=== PATIENT | female | born 1945 | race Caucasian/White ===

== ENCOUNTER 2017-06-07 11:16 | Inpatient (IN) ==
[2017-06-07] MEDS ORDERED: SODIUM CHLORIDE 0.9% 2,000 ML IV STA (12:21)
[2017-06-07] MEDS ORDERED: PANTOPRAZOLE INJ 80 MG in SODIUM CHLORIDE 0.9% 100 ML IV STA (12:21)
[2017-06-07] MEDS ORDERED: PANTOPRAZOLE 40 MG VIAL IV ONE (12:53)
[2017-06-07 12:58] LABS: Basophils % 0.3 % (0.0-0.8); Eosinophils # 0.4 10*3/uL (0.0-0.87); Eosinophils % 4.7 % (0.00-10.9); Hematocrit 35.2 VOL% (35.7-47.0); Hemoglobin 11.5 GM/DL (12.0-16.0); Immature Granulocytes % 0.4 %; Immature Granulocytes Absolute 0.03 #; Lymphocytes # 0.5 10*3/uL (1.4-4.0); Lymphocytes % 6.9 % (21.3-54.2); Mean Corpuscular HGB Conc 32.7 GM/DL (32-36); Mean Corpuscular Hemoglobin 28 PG (27-34); Mean Corpuscular Volume 86.9 FL (87-102); Mean Platelet Volume 9.2 FL (9.6-12.0); Monocytes # 0.3 10*3/uL (0.11-0.8); Monocytes % 3.3 % (1.7-12.7); Neutrophils # 6.5 10*3/uL (1.4-7.4); Neutrophils % 84.4 % (38.7-73.9); Platelet Count 213 T/CUMM (130-400); Red Blood Count 4.05 MC/CUMM (3.8-5.5); Red Cell Distribution Width 15.2 % (9.3-17.3); White Blood Count 7.7 T/CUMM (4-12)
[2017-06-07 13:07] LABS: INR 1.2; PT Patient Result 12.8 SECS; Partial Thromboplastin Time 32.2 SECS (0-40)
[2017-06-07 13:42] LABS: Alanine Aminotransferase 14 U/L (13-56); Albumin 3.5 G/DL (3.4-5.0); Alkaline Phosphatase 95 U/L (45-117); Aspartate Amino Transferase 15 U/L (0-37); Blood Urea Nitrogen 9 MG/DL (7-18); Calcium 8.8 MG/DL (8.5-10.1); Total Protein 7.2 G/DL (6.4-8.3)
[2017-06-07 13:43] LABS: Glucose 105 MG/DL (74-106); Osmolality,Calculated 277.4 MOS/KG (273-304); Potassium 3.6 MMOL/L (3.5-5.1); Sodium 140 MMOL/L (136-145); Troponin I Only < 0.015 NG/ML (0.00-0.045)
[2017-06-07] MEDS: PANTOPRAZOLE INJ 200 MG in SODIUM CHLORIDE 0.9% 250 ML IV SCH (14:10)
[2017-06-07] MEDS ORDERED: ONDANSETRON 4 MG/2 ML VIAL IV STA (15:20)
[2017-06-07] MEDS ORDERED: ONDANSETRON 4 MG/2 ML VIAL ONE (15:28)
[2017-06-07] MEDS ORDERED: ONDANSETRON 4 MG/2 ML VIAL IV PRN (16:07)
[2017-06-07] MEDS ORDERED: MORPHINE 2 MG/1 ML SYRINGE IV PRN (16:07)
[2017-06-07 16:50] LABS: Free T4 (Free Thyroxine) 1.13 NG/DL (0.76-1.46); Thyroid Stimulating Hormone 5.53 uIU/ml (0.358-3.74)
[2017-06-07] MEDS: SODIUM CHLORIDE 0.9% 1,000 ML IV SCH (18:05)
[2017-06-07 21:09] LABS: Hematocrit 31.6 VOL% (35.7-47.0); Hemoglobin 10.2 GM/DL (12.0-16.0)
[2017-06-08 01:29] LABS: Hematocrit 27.4 VOL% (35.7-47.0); Hemoglobin 8.9 GM/DL (12.0-16.0)
[2017-06-08] MEDS: SODIUM CHLORIDE 0.9% 1,000 ML IV SCH ×4 (02:54→22:40)
[2017-06-08] MEDS: LEVOTHYROXINE 25 MCG TABLET PO SCH (06:26)
[2017-06-08 06:47] LABS: Hematocrit 29.1 VOL% (35.7-47.0); Hemoglobin 9.5 GM/DL (12.0-16.0)
[2017-06-08 12:47] LABS: Hemoglobin 9.7 GM/DL (12.0-16.0)
[2017-06-08] MEDS: PANTOPRAZOLE INJ 200 MG in SODIUM CHLORIDE 0.9% 250 ML IV SCH (17:18)
[2017-06-08] MEDS: MELATONIN 3 MG TABLET PO PRN (22:58)
[2017-06-09 02:47] LABS: Basophils % 0.4 % (0.0-0.8); Eosinophils # 0.5 10*3/uL (0.0-0.87); Eosinophils % 10.7 % (0.00-10.9); Hematocrit 28.2 VOL% (35.7-47.0); Hemoglobin 9.2 GM/DL (12.0-16.0); Immature Granulocytes % 0.4 %; Immature Granulocytes Absolute 0.02 #; Lymphocytes # 1.1 10*3/uL (1.4-4.0); Lymphocytes % 22.9 % (21.3-54.2); Mean Corpuscular HGB Conc 32.6 GM/DL (32-36); Mean Corpuscular Hemoglobin 28 PG (27-34); Mean Corpuscular Volume 86.5 FL (87-102); Mean Platelet Volume 9.7 FL (9.6-12.0); Monocytes # 0.4 10*3/uL (0.11-0.8); Monocytes % 9.2 % (1.7-12.7); Neutrophils # 2.7 10*3/uL (1.4-7.4); Neutrophils % 56.4 % (38.7-73.9); Platelet Count 180 T/CUMM (130-400); Red Blood Count 3.26 MC/CUMM (3.8-5.5); White Blood Count 4.8 T/CUMM (4-12)
[2017-06-09 03:09] LABS: Osmolality,Calculated 281.8 MOS/KG (273-304); Potassium 3.2 MMOL/L (3.5-5.1)
[2017-06-09] MEDS: SODIUM CHLORIDE 0.9% 1,000 ML IV SCH ×3 (05:07→18:44)
[2017-06-09] MEDS: LEVOTHYROXINE 25 MCG TABLET PO SCH (06:35)
[2017-06-09] MEDS: POTASSIUM CHLORIDE 20 MEQ TABLET PO SCH ×3 (08:51→17:05)
[2017-06-09] MEDS: PANTOPRAZOLE INJ 200 MG in SODIUM CHLORIDE 0.9% 250 ML IV SCH (18:43)
[2017-06-09] MEDS: MELATONIN 3 MG TABLET PO PRN (21:02)
[2017-06-10] MEDS: SODIUM CHLORIDE 0.9% 1,000 ML IV SCH ×3 (01:27→18:46)
[2017-06-10 05:07] LABS: Basophils % 0.7 % (0.0-0.8); Eosinophils # 0.6 10*3/uL (0.0-0.87); Eosinophils % 12.6 % (0.00-10.9); Hematocrit 28.8 VOL% (35.7-47.0); Hemoglobin 9.4 GM/DL (12.0-16.0); Immature Granulocytes % 0.2 %; Immature Granulocytes Absolute 0.01 #; Lymphocytes # 1.3 10*3/uL (1.4-4.0); Lymphocytes % 29.3 % (21.3-54.2); Mean Corpuscular HGB Conc 32.6 GM/DL (32-36); Mean Corpuscular Hemoglobin 29 PG (27-34); Mean Corpuscular Volume 87.3 FL (87-102); Mean Platelet Volume 9.6 FL (9.6-12.0); Monocytes # 0.4 10*3/uL (0.11-0.8); Monocytes % 9.8 % (1.7-12.7); Neutrophils # 2.1 10*3/uL (1.4-7.4); Neutrophils % 47.4 % (38.7-73.9); Platelet Count 157 T/CUMM (130-400); Red Cell Distribution Width 15.2 % (9.3-17.3); White Blood Count 4.4 T/CUMM (4-12)
[2017-06-10 05:40] LABS: Eosinophils 9 % (0-10); Lymphocytes 27 % (20-55); Segmented Neutrophils 58 % (50-85); Total Cells Counted 100
[2017-06-10 05:41] LABS: Platelet Estimate Normal
[2017-06-10 05:56] LABS: Calcium 8.1 MG/DL (8.5-10.1); Osmolality,Calculated 283.7 MOS/KG (273-304); Potassium 3.4 MMOL/L (3.5-5.1)
[2017-06-10] MEDS: LEVOTHYROXINE 25 MCG TABLET PO SCH (06:18)
[2017-06-10] MEDS ORDERED: LIDOCAINE 2% 5 ML VIAL ONE (10:25)
[2017-06-10] MEDS ORDERED: PROPOFOL 200 MG/20 ML VIAL IV ONE (10:25)
[2017-06-10] MEDS ORDERED: ONDANSETRON 4 MG/2 ML VIAL ONE (11:09)
[2017-06-10] MEDS: RIVAROXABAN 15 MG TABLET PO SCH (16:55)
[2017-06-11 05:54] LABS: Basophils % 0.3 % (0.0-0.8); Eosinophils # 0.4 10*3/uL (0.0-0.87); Hematocrit 28.2 VOL% (35.7-47.0); Hemoglobin 9.1 GM/DL (12.0-16.0); Immature Granulocytes % 0.3 %; Immature Granulocytes Absolute 0.02 #; Lymphocytes # 1.2 10*3/uL (1.4-4.0); Lymphocytes % 19.7 % (21.3-54.2); Mean Corpuscular HGB Conc 32.3 GM/DL (32-36); Mean Corpuscular Hemoglobin 28 PG (27-34); Mean Corpuscular Volume 86.2 FL (87-102); Mean Platelet Volume 9.8 FL (9.6-12.0); Monocytes # 0.4 10*3/uL (0.11-0.8); Monocytes % 6.9 % (1.7-12.7); Neutrophils # 4.1 10*3/uL (1.4-7.4); Neutrophils % 66.8 % (38.7-73.9); Platelet Count 153 T/CUMM (130-400); Red Blood Count 3.27 MC/CUMM (3.8-5.5); Red Cell Distribution Width 15.2 % (9.3-17.3); White Blood Count 6.2 T/CUMM (4-12)
[2017-06-11 06:22] LABS: Calcium 7.9 MG/DL (8.5-10.1); Osmolality,Calculated 282.8 MOS/KG (273-304); Potassium 3.2 MMOL/L (3.5-5.1)
[2017-06-11] MEDS: LEVOTHYROXINE 25 MCG TABLET PO SCH (06:22)
[2017-06-11] MEDS: SODIUM CHLORIDE 0.9% 1,000 ML IV SCH (06:28)
[2017-06-11 07:34] VITALS: BP 135/80
[2017-06-11] MEDS: RIVAROXABAN 15 MG TABLET PO SCH (08:57)
[2017-06-11] MEDS ORDERED: PANTOPRAZOLE 40 MG VIAL IV SCH (09:00)
== END 2017-06-11 10:15 | disposition home or self-care (01) | DRG 378 ==
LOC: N.ED 11:16 → SUATTDRO 13:55 → N.EDINP 14:50 → N.3E 17:35
PROVIDERS: ADMIT Hospitalist; ATTEND Internal Medicine